=== PATIENT | female | born 1990 | race Caucasian/White ===

== ENCOUNTER 2018-09-01 07:07 | Inpatient (IN) | payer BC, SELFPAY ==
[2016-11-25 04:20] VITALS: BMI 29.9
[2018-09-01] MEDS: Lactated Ringers 1,000 ML 50 ML IV ×3 (07:40→13:51)
[2018-09-01 07:59] LABS: Hematocrit 39.9 % (37-47); Hemoglobin 13.5 g/dl (12.0-15.0); Mean Corp Hgb Conc 33.8 g/gl (32-36); Mean Corpuscular Hgb 30.2 pg (27.0-32.0); Mean Corpuscular Volume 89.3 fL (81-99); Mean Platelet Vol. 10.9 fl (6.2-12.0); Platelet Count 165 K/mm3 (150-450); RBC Distribution Width CV 12.9 % (11.6-14.6); Red Blood Count 4.47 M/mm3 (4.2-5.4); White Blood Count 7.5 K/mm3 (4.4-11.0)
[2018-09-01 08:05] LABS: Scan Indicated on CBC? Y/N NO
[2018-09-01 08:10] VITALS: BMI 30.8
[2018-09-01] MEDS: Oxytocin 30 units/NS 500 ml 30 UNITS/500 ML IV.SOLN IV (08:17)
[2018-09-01] MEDS: Acetaminophen 325 MG Tablet PO (09:04)
[2018-09-01] MEDS: fentaNYL-bupivacaine (epidural) 100 ML BAG EPIDURAL (11:38)
[2018-09-01] MEDS: Oxytocin 30 units/NS 500 ml 30 UNITS/500 ML IV.SOLN 334 UNITS IV (15:08)
--- NOTE | 2018-09-01 15:23 | PCM.OB.VAG ---
Vaginal Delivery Maternal Presentation: Elective Induction Method of Induction: Pitocin, Amniotomy Amniotic Membrane Rupture Type: Artificial Amniotic Fluid Description: Clear Final LALITA: 08/27/18 Final LALITA Source: US <20 weeks Gestational age: 40 Weeks and 5 Days Date of Procedure: 09/01/18 Pre-Operative Diagnosis: labor Post-Operative Diagnosis: same Surgery/ Procedure Performed: Spontaneous Vaginal Delivery Type of Anesthesia: Epidural Description of Procedure: A vigorous female was delivered YANIQUE over an intact perineum. The remainder the infant was delivered with maternal pushing and gentle traction only in less than 15 seconds. The Pitocin infusion was initiated for active management of the third stage. The cord was clamped and cut after 1 minute. The infant was attended to by the waiting nursing staff. The placenta was delivered spontaneously and intact. The cervix and vagina were intact. Sponge and needle counts were correct. A vaginal sweep was completed by me. Presentation: YANIQUE Placental Delivery Description: Spontaneous Placenta Disposition: [facility] Cord Vessel Description: 3 Vessels Cord Entanglement: None Drain: Wilcox to straight drain Estimated Blood Loss: 200 A gender: Female (1 minute): 8 (5 minute): 9 Episiotomy Description: None Laceration: None Medications given after delivery: IV Pitocin Complications: None
--- NOTE | 2018-09-01 15:31 | HP.PCM_ITS ---
History Date of Admission: 09/01/18 Final LALITA: 08/27/18 Final LALITA Source: US <20 weeks Gestational age: 40 Weeks and 5 Days History of this : This is a 27 year-old, 011 at 40-5/7 weeks who presents for induction of labor. Her has been uncomplicated to date. She denies any vaginal bleeding, leaking of fluid, or regular contractions. She has a history of one previous spontaneous vaginal delivery without complication. Allergies Gadolinium-MRI Contrast Medium [CONTRAST] Allergy (Verified 09/01/18 08:13) Rash latex Allergy (Verified 09/01/18 08:13) Rash Home Medications: Home Medications Pnv No.95/Ferrous Fum/Folic AC [ Formula Tablet] 1 each PO DAILY 12/11/15 [place]-3 Fatty Acids/Fish Oil [Fish Oil 1,000 mg Capsule] 1 each PO DAILY 10/03/16 Famotidine [Pepcid AC] 10 mg PO DAILY 11/25/16 Smoking Status: Never smoker Alcohol: None Number of Fetus(es): 1 Heart Tracing: Category 1 upon admission TOCO Analysis: Regular contractions History Past Pregnancies: Past Pregnancies Delivery Date Name GA/Weeks Outcome Route Weight Infant Gender Labor Length Anesthesia Delivery Location Provider FOB Expected Infant Delivery Method: Spontaneous Vaginal Review of Systems Constitutional: Denies: Anorexia, Chills Cardiovascular: Denies: Chest Pain Respiratory: Denies: Cough Gastrointestinal: Denies: Abdominal Pain Genitourinary: Denies: Dysuria Physical Exam General: Alert, Cooperative, No apparent distress Abdomen: Soft, Non-Distended, Tender - appropriately Extremities:: Other - edema 1+ Estimated gestational size: Appropriate for gestational size Presentation: Cephalic Cervix Dilation (cm): 3 Station: -2 Effacement (%): 70 Assessment/Plan This is a 27 year-old 3 para 1 at 40-5/7 weeks for elective induction of labor. Estimated weight is less than 4500 g clinically and pelvis clinically adequate to expect vaginal delivery. May have epidural, Nubain or nitrous oxide as needed for pain control.
[2018-09-01] MEDS: Oxytocin 30 units/NS 500 ml 30 UNITS/500 ML IV.SOLN 167 UNITS IV (15:38)
[2018-09-01 18:00] VITALS: BP 137/67; PULSE 86; RESP 16; TEMP 36.9; O2SAT 97
[2018-09-01] MEDS: Acetaminophen 500 MG Tablet 1000 MG PO (18:02)
--- NOTE | 2018-09-01 19:03 | NURSING ---
epidural cath removed, blue tip intact
[2018-09-01 20:28] VITALS: BP 118/75; PULSE 83; RESP 18; TEMP 36.3; O2SAT 98
[2018-09-01] MEDS: Naproxen 250 MG Tablet PO (20:36)
[2018-09-01 23:18] VITALS: BP 136/81; PULSE 81; RESP 16; TEMP 36.7
[2018-09-02 03:27] VITALS: BP 128/67; PULSE 81; RESP 16; TEMP 36.4
[2018-09-02 07:55] VITALS: BP 127/84; PULSE 86; RESP 16; TEMP 36.8; O2SAT 98
--- NOTE | 2018-09-02 09:36 | PCM.PN.OB ---
Subjective: Some cramping when she is breast-feeding. Average lochia. Tolerating regular diet. No other complaints this morning - Physical Exam General: Alert, Cooperative, No apparent distress Extremities: Edema - Trace Vital Signs Temp Pulse Resp BP Pulse Ox 98.3 F 86 16 127/84 H 98 09/02/18 07:55 09/02/18 07:55 09/02/18 07:55 09/02/18 07:55 09/02/18 07:55 Oxygen Delivery Method Room Air Weight: 81.556 kg Body Mass Index (BMI) 30.8 Intake and Output for Last 24 Hours 08/31/18 09/01/18 09/02/18 23:59 23:59 23:59 Intake Total 2541 / 2541 Output Total 1800 / 1800 400 / 400 Balance 741 / 741 -400 / -400 Laboratory Tests Past 24 Hrs 09/01/18 07:40 Blood Type O POSITIVE Antibody Screen NEGATIVE Medical Necessity - Tobacco Use Smoking Status: Never smoker Assessment/Plan day #1 status post spontaneous vaginal delivery. And is breast-feeding and doing well. Patient requests discharge home later today if okay with pediatrics.
--- NOTE | 2018-09-02 09:39 | DCINST_ITS ---
Discharge Diet: No Restrictions Discharge Activity: Return to Normal Activity, May not drive while taking narcotic pain medications., May Shower May resume sexual activity in: 4-6 weeks Additional Activity Instructions:: Nothing in the vagina for 4-6 weeks. You may return to work/school in 6 weeks. Call your doctor if your incision/area has: Continuous Slow Oozing, Sudden Increased Bleeding, Increased Pain/ Swelling, Increased Redness, Foul Smelling Discharge Additional Instructions: If you experience any of the following, contact your healthcare provider. * Bleeding that soaks a pad every hour for 2 hours * Fever 100.4 or higher * Unrelieved incision or abdominal pain * Swelling, redness, discharge or bleeding from your incision or episiotomy site * Your incision begins to separate * Problems urinating (including inability to urinate or burning while urinating). * Visual changes * Severe headache * Flu-like symptoms * Pain or redness in one of both of your breasts * Pain, warmth, tenderness or swelling in your legs, especially the calf area * Frequent nausea and vomiting * Symptoms of depression or anxiety If you experience any of the following, call 911 or go to the nearest Emergency Room. * Chest pain * Problems breathing * Seizure activity * Partial or complete paralysis of a body part, slurred speech, weakness or drooping of the face, or a sudden inability to walk or hold your balance Allergies/Adverse Reactions: Allergies Gadolinium-MRI Contrast Medium [CONTRAST] Allergy (Verified 09/01/18 08:13) Rash latex Allergy (Verified 09/01/18 08:13) Rash Medications to take at Discharge Pnv No.95/Ferrous Fum/Folic AC [ Formula Tablet] 1 each PO DAILY 12/11/15 [place]-3 Fatty Acids/Fish Oil [Fish Oil 1,000 mg Capsule] 1 each PO DAILY 10/03/16 Ibuprofen [Motrin] 600 mg PO Q6H PRN #60 tab 09/02/18 The following prescriptions were given: Ibuprofen [Motrin] 600 mg PO Q6H PRN #60 tab PRN Reason: Pain Please Follow Up With: Danuta Cheatham MD - [phone] When: Call to make an appointment with your provider's office in 1-2 and 6 weeks or as needed. Primary Care Physician: Sarah Calderón MD [Primary Care Provider] - Test Results: Test results from this visit will be discussed in further detail at your follow- up appointment, if applicable.
[2018-09-02 11:38] VITALS: BP 128/64; PULSE 77; RESP 16; TEMP 36.7; O2SAT 97
[2018-09-02 15:42] VITALS: BP 129/73; PULSE 75; RESP 16; TEMP 36.6; O2SAT 99
== END 2018-09-02 16:45 | disposition home or self-care (01) | DRG 807 ==
PROVIDERS: Admitting Provider Obstetrics & Gynecology; Family Provider Internal Medicine; PCP Internal Medicine; Referring Provider Obstetrics & Gynecology; Visit Provider Obstetrics & Gynecology
DX: O48.0 Post-term pregnancy (principal); Z37.0 Single live birth; Z3A.40 40 weeks gestation of pregnancy
CPT/HCPCS: 59025; 59050; 85027; 86850; 86900; 99218; J7120; G0378

== ENCOUNTER 2019-06-28 21:25 | Emergency (ER) | payer BC, SELFPAY ==
[2019-06-28 21:26] VITALS: BP 167/109; PULSE 90; RESP 16; TEMP 36.4; O2SAT 98; BMI 27.1
--- NOTE | 2019-06-28 23:09 | ED.DCSUM_ITS ---
History of Present Illness Chief Complaint: Other, Pain/Inj Detail of Chief Complaint: Left neck and arm pain Informant: Patient, Family Onset: Weeks - 1 week Context: Gradual Onset Timing: Waxes and wanes Current Severity: Mild Maximum Severity: Moderate Narrative: Patient presents with a one-week history of aching and heaviness in the left la teral neck, left shoulder, and down her left arm. She does not remember a specific injury. She has been carrying her infant around. She states she will intermittently feel tingling in her left hand. She is right-hand dominant. She is been trying Tylenol without improvement. - Past Medical History (1) Liver cancer Status: Resolved Past Medical History - Allergies and Home Meds Allergies/Adverse Reactions: Allergies Gadolinium-MRI Contrast Medium [CONTRAST] Allergy (Verified 06/28/19 21:29) Rash latex Allergy (Verified 06/28/19 21:29) Rash Primary Care Physician: Sarah Calderón MD [Primary Care Provider] - 1 Week if not improving Prior records reviewed: Yes Lives: With Family Smoking Status: Never smoker Review of Systems General: Denies: Chills, Fever Eyes: Denies: Visual changes - bilaterally ENT: Denies: Bilateral ear pain Cardiovascular: Denies: Chest pain Respiratory: Denies: Dyspnea, Cough Gastrointestinal: Denies: Abdominal pain, Nausea, Vomiting Musculoskeletal: Reports: Neck pain, Extremity Pain Skin: Denies: Rash Neurological: Reports: Parasthesia. Denies: Weakness Psych: Denies: Depression, Anxiety Hematologic: Denies: Easy bruising, Easy bleeding Allergy: Denies: Uticaria Physical Exam Vital Signs/Narrative: Vital Signs Temp Pulse Resp BP Pulse Ox 06/28/19 21:26 97.5 F L 90 16 167/109 H 98 Inital Vital Signs reviewed: Yes General: Well nourished, Well developed Head: Normocephalic ENT: Moist mucous membranes, - - Tenderness just superior to the medial left clavicle that causes radiation of pain down the left arm. Neck: Supple Cardiovascular: Regular rate, Regular rhythm Respiratory: No distress Abdomen: Soft, Nontender Rectal: Tenderness - Reproducible tenderness near the medial clavicle on the left. No reproducible tenderness over the posterior shoulder. Back: Nontender Extremities: Nontender Skin: Normal color, No rash Neurological: Alert, Oriented x3, Normal Strength, Normal Sensation Psychological: Normal affect Diagnostic/Tx/Re-eval - Medical Decision Making Patient symptoms are consistent with a pinched nerve. She will be started on anti-inflammatories. She is currently breast-feeding so we will hold off on any muscle relaxers at this time. She was advised to follow with her primary care physician if not improving and she may be able to try a course of steroids to help calm down the inflammation if not improved. ED Disposition - Plan for ED Patient: Disposition: Home or Assisted Living Diagnosis: Cervical radiculopathy Instructions: RADICULOPATHY, Cervical Prescriptions: Naproxen [Naprosyn] 500 mg PO BID PRN PRN #20 tab PRN Reason: Pain Score 1-10/10 Transmission Status: Received by [id number] Referrals: Sarah Calderón MD [Primary Care Provider] - 1 Week if not improving
[2019-06-28] MEDS: Naproxen 500 MG Tablet PO (23:24)
== END 2019-06-28 23:28 | disposition home or self-care (01) ==
PROVIDERS: Emergency Provider Emergency Medicine; Family Provider Internal Medicine; PCP Internal Medicine
DX: M54.12 Radiculopathy, cervical region (principal); Z85.05 Personal history of malignant neoplasm of liver
CPT/HCPCS: 99283

== ENCOUNTER 2022-12-06 18:50 | Inpatient (IN) | payer BC, SELFPAY ==
[2022-12-06] VITALS (33 sets, daily range): BP systolic 116–166; BP diastolic 58–89; PULSE 52–85; TEMP 36.6–36.9; O2SAT 97–100; BMI 29.2
[2022-12-06] MEDS: Lactated Ringers 1,000 ML 50 ML IV (19:00)
[2022-12-06 19:14] LABS: Absolute Lymphocyte Count 1.44 X10^3/uL (0.83-4.51); Absolute Neutrophil Count 5.8 X10^3/uL (2.0-7.7); Basophil# 0.03 X10^3/uL; Basophil% 0.4 % (0-1); Eosinophil# 0.02 X10^3/uL; Eosinophils% 0.3 % (0-5); Hemoglobin 13.7 g/dL (12.0-15.0); Lymphocyte # 1.44 X10^3/ul (0.83-4.51); Lymphocyte % 18.2 % (19-41); Mean Corp Hgb Conc 34.3 g/dL (32-36); Mean Corpuscular Hgb 30.4 pg (27.0-32.0); Mean Corpuscular Volume 88.9 fL (81-99); Mean Platelet Vol. 10.8 fl (6.2-12.0); Monocyte% 7.6 % (0-10); NRBC Flagged by Analyzer 0 % (0-5); Neutrophil % 73.2 % (47-70); Platelet Count 161 K/mm3 (150-450); RBC Distribution Width CV 12.3 % (11.6-14.6); RBC Distribution Width SD 40.3 fl (35.1-43.9); White Blood Count 7.9 K/mm3 (4.4-11.0)
[2022-12-06] MEDS: LACTATED RINGERS 500 ML 999 ML IV (20:10)
[2022-12-06 20:13] LABS: Syphilis Antibodies Non-reactive
--- NOTE | 2022-12-06 20:51 | PCM.HP.OB ---
HPI - General General Date of Admission: 12/06/22 Date of Service: 12/06/22 Chief Complaint: labor HPI Narrative LUL MARTELL, is a 32 F who presents at 40 week gestation with ctx's and is 4 cm dilated. No vb, lof. Good FM. PFSH PFSH Medical History (Updated 12/06/22 @ 20:[address] Marylin Parker, DO) Headache Home Medications vit no.95-ferrous fumarate 28 mg-folic acid 800 mcg tablet ( Multivitamins) 1 ea PO DAILY 12/11/15 [History Last Taken 09/01/18] omega-3 fatty acids-fish oil 340 mg-1,000 mg capsule (Fish Oil) 1 ea PO DAILY 10/03/16 [History Last Taken 09/01/18] ibuprofen 600 mg tablet 600 mg PO Q6H PRN Pain #60 tabs 09/02/18 [Rx Last Taken Unknown] naproxen 500 mg tablet 500 mg PO BID PRN PRN Pain Score 1-10/10 #20 tabs 06/28/19 [Rx Last Taken Unknown] Allergy/AdvReac Type Severity Reaction Status Date / Time Gadolinium-MRI Contrast Allergy Rash Verified 12/06/22 19:45 Medium [CONTRAST] latex Allergy Rash Verified 12/06/22 19:45 Surgical History (Updated 12/06/22 @ 19:34 by Columba Brandt) History of surgery Social History Smoking Status: Never smoker History Elective abortions Hx Para 2 Spontaneous abortions Hx # Term Pregnancies Ectopic pregnancies Hx # Pregnancies Multiple births # of living children Addt'l History: GBS neg 1 hour GTT 104 RI Syphilis NR Hep B neg Hep C neg HIV NR O positive GC/CT neg NST FHR Rate Baby A FHR Category:: Category I Uterine Activity:: Ctx's q 4 min Vital Signs Vital Signs Vital Signs: 12/06/22 18:38 12/06/22 18:38 12/06/22 18:54 Temperature Temperature Source Pulse Rate 75 Blood Pressure 149/70 H 142/89 H BP Systolic 149 142 BP Diastolic 70 89 Pulse Ox 12/06/22 18:54 12/06/22 19:09 12/06/22 19:09 Temperature Temperature Source Pulse Rate 85 73 Blood Pressure 136/84 H BP Systolic 136 BP Diastolic 84 Pulse Ox 12/06/22 19:24 12/06/22 19:24 12/06/22 19:24 Temperature Temperature Source Pulse Rate 71 Blood Pressure 136/73 H BP Systolic 136 BP Diastolic 73 Pulse Ox 97 12/06/22 19:25 12/06/22 19:25 12/06/22 20:46 Temperature 98.5 F Temperature Source Temporal Pulse Rate 72 Blood Pressure BP Systolic BP Diastolic Pulse Ox 12/06/22 20:46 Temperature Temperature Source Pulse Rate Blood Pressure BP Systolic BP Diastolic Pulse Ox 100 Weight Weight: 176 lb Body Mass Index (BMI) 29.2 Labs Labs Labs: Blood Type O POSITIVE Antibody Screen NEGATIVE Hct 40.0 % (37-47) Hgb 13.7 g/dL (12.0-15.0) Obstetrics US Syphilis Total Ab Non-reactive Rhogam given: No Assessment & Plan (1) 40 weeks gestation of : PLAN: Admit for routine intrapartum care. GBS neg. Epidural for pain control. CEFM. Will AROM after epidural. Pelvis adequate and EFW AGA. Anticipate vaginal delivery. (2) Active labor at term: (3) Multiparous: (4) Primary fibrolamellar hepatocellular carcinoma of liver: (5) History of macrosomia in in prior , currently :
[2022-12-06] MEDS: fentaNYL-bupivacaine (epidural) 100 ML BAG EPIDURAL (20:58)
--- NOTE | 2022-12-06 21:14 | PCM.PN.BLA ---
Progress Note At bedside to check on pt s/p epidural. RN at bedside. Pt comfortable. Assessment & Plan Assessment/Plan (1) 40 weeks gestation of : PLAN: S/p epidural. Cvx /-2, head well applied with BBOW. AROM performed for meconium stained fluid. Anticipate vaginal delivery. (2) Active labor at term: (3) Multiparous: (4) Primary fibrolamellar hepatocellular carcinoma of liver: (5) History of macrosomia in infant in prior , currently :
[2022-12-06] MEDS: Ondansetron 4 MG/2 ML Vial IV (21:58)
[2022-12-06] MEDS: Oxytocin 10 UNITS/ML Vial IM (23:17)
[2022-12-06] MEDS: Oxytocin 15 Units/NS 250ml 15 UNITS/250 ML IV.SOLN 83 UNITS IV (23:19)
[2022-12-06] MEDS: Methylergonovine 0.2 MG/ML Ampul IM (23:25)
--- NOTE | 2022-12-06 23:33 | PCM.OPRPT ---
Problems Associated Problem List Diagnoses (1) History of macrosomia in in prior , currently : (2) Primary fibrolamellar hepatocellular carcinoma of liver: (3) Multiparous: (4) Active labor at term: (5) 40 weeks gestation of : (6) Vaginal delivery: Report of Operation Date of Procedure: 12/06/22 Pre-Operative Diagnosis: 40 week gestation, multiparous patient, labor at term Post-Operative Diagnosis: As above Surgery/Procedure Performed:: Repair of left labial laceration Description of Surgical Findings:: VFI in JACOB position. Thick meconium. Apgars 8, 9. Normal appearing placenta with 3 VC. Left labial laceration. Surgeon: Marylin Parker Type of Anesthesia: Epidural Special Medications: None Specimen's removed: Placenta Drains: None Estimated Blood Loss (mL): 200 Fluids Replaced: N/A Description of Procedure: The patient was complete and pushing. The head of the infant delivered in left occiput anterior position. Airway suctioned using bulb syringe. A loose nuchal cord x1 was started to be reduced, but the anterior shoulder began to deliver spontaneously. The anterior shoulder followed by the posterior shoulder and body of the delivered without any force or delay. A viable female infant was placed on maternal abdomen. The cord was clamped and cut immediately. Cord gases and cord blood were obtained. Uterine massage was performed and the placenta was delivered. The placenta was noted to be normal-appearing and intact with a three-vessel cord. Pitocin was started. The uterus was explored x1. A left labial laceration was repaired with several interrupted 3-0 Vicryl stitches placed. A sudden gush was noted. The uterus was explored and cleared of clot, and the lower uterine segment was noted to be boggy. Methergine x1 was given. The uterus was then firm after uterine massage and Methergine. Bleeding hemostatic. Vaginal sweep was performed. Sponge counts were correct. Grafts/Implants Used: None Complications None Admit VTE Documentation VTE Present on Admission: No
[2022-12-07] VITALS (13 sets, daily range): BP systolic 119–138; BP diastolic 57–82; PULSE 52–85; RESP 15–16; TEMP 36.1–37.1; O2SAT 96–98
--- NOTE | 2022-12-07 07:25 | NURSING ---
bedside report given to Dinorah Mortensen RN who is assuming care of pt at this time
--- NOTE | 2022-12-07 09:10 | PCM.PN.OB ---
Subjective Subjective Doing well per patient and nursing staff. Ambulating and taking PO without difficulty. Voiding and passing flatus. Pain controlled. , services for assistance. Denies headache, visual changes, chest pain, shortness of breath, leg pain or increased bleeding. Lochia normal. Objective Data Objective Data Vital Signs: Vital Signs Temp Pulse Resp BP Pulse Ox O2 Del Method 98.1 F 66 16 123/57 H 96 Room Air 12/07/22 07:44 12/07/22 07:44 12/07/22 07:44 12/07/22 07:44 12/07/22 07:44 12/07/22 07:44 Oxygen Delivery Method Room Air Weight: 176 lb Body Mass Index (BMI) 29.2 Intake & Output: Intake and Output for Last 24 Hours 12/05/22 12/06/22 12/07/22 23:59 23:59 23:59 Intake Total 1078.33 / 1078.33 250 / 250 Output Total 200 / 200 500 / 500 Balance 878.33 / 878.33 -250 / -250 Lab / Micro Data Result Diagrams: 12/06/22 19:00 Labs: Laboratory Results - last 24 hr 12/06/22 19:00: WBC 7.9, RBC 4.50, Hgb 13.7, Hct 40.0, MCV 88.9, MCH 30.4, MCHC 34.3, RDW Std Deviation 40.3, RDW Coeff of [place] 12.3, Plt Count 161, MPV 10.8, Immature Gran % (Auto) 0.300, Neut % (Auto) 73.2 H, Lymph % (Auto) 18.2 L, [place] % (Auto) 7.6, Eos % (Auto) 0.3, Baso % (Auto) 0.4, Absolute Neuts (auto) 5.8, Absolute Lymphs (auto) 1.44, Nucleated RBC % 0 12/06/22 19:00: Blood Type O POSITIVE, Antibody Screen NEGATIVE 12/06/22 19:00: Syphilis Total Ab Non-reactive ROS Constitutional Constitutional: Reports systems reviewed and no addt'l complaints, except as documented; Denies headache(s) Eyes Eyes: Denies acute decrease in peripheral vision, blurry vision or change in vision ENT HEENT: Reports systems reviewed and no addt'l complaints, except as documented Cardiovascular Cardiovascular: Denies chest pain or dizziness Respiratory/Chest Respiratory/Chest: Denies cough, dyspnea, dyspnea on exertion, shortness of breath at rest or shortness of breath with exertion Gastrointestinal Gastrointestinal: Denies abdominal pain, diarrhea, nausea or vomiting Genitourinary Genitourinary: Denies abdominal discomfort Musculoskeletal Musculoskeletal: Denies limited range of motion Integumentary Integumentary: Reports systems reviewed and no addt'l complaints, except as documented Neurologic Neurologic: Reports systems reviewed and no addt'l complaints, except as documented Psychiatric Psychiatric: Reports systems reviewed and no addt'l complaints, except as documented Endocrine Endocrinology: Reports systems reviewed and no addt'l complaints, except as documented Hematologic/Lymphatic Hematologic/Lymphatic: Reports systems reviewed and no addt'l complaints, except as documented Allergic/Immunologic Allergic/Immunologic: Reports systems reviewed and no addt'l complaints, except as documented Physical Exam Const alert and oriented x3 General Appearance: cooperative Orientation / Consciousness: awake, oriented to person, oriented to place and oriented to time Exam Limitations: no limitations HEENT normocephalic Head and Scalp: normal to inspection, normocephalic and atraumatic Face and Sinus: normal facial exam Eyes General Eye: normal appearance of both eyes Neck full ROM Chest Chest: symmetrical chest wall rise Resp normal respiratory effort and normal air movement Auscultation: clear to auscultation bilaterally Cardio regular rate, regular rhythm, S1 normal heart sound, S2 normal heart sound, no murmurs, no rub, no gallops and no clicks GI normal to inspection, nondistended, normoactive bowel sounds and non-tender appearance of the vagina normal Bladder / Kidney Exam: no CVA tenderness Back/Spine normal ROM Extremity normal to inspection and full ROM Skin no rashes or lesions noted Neuro oriented x3, CN's II-XII intact bilaterally and moves all extremities Sensorium / Orientation: awake, alert and oriented to person Motor Exam: clonus absent Deep Tendon Reflexes: Rt Patellar (L4): 2+ and Lt Patellar (L4): 2+ Assessment & Plan (1) Vaginal delivery: (2) Lactating mother: PLAN: Plan 1) Routine PP care PPD #1 2) Vitals stable 3) Hgb stable 4) Pain controlled 5) without complications 6) Planning D/C home tomorrow
[2022-12-08 02:55] VITALS: BP 119/77; PULSE 64; RESP 16; TEMP 36.1; O2SAT 97
[2022-12-08 08:00] VITALS: BP 123/72; PULSE 64; RESP 16; TEMP 36.2; O2SAT 97
--- NOTE | 2022-12-08 08:32 | PCM.PN.OB ---
Subjective Subjective Patient seen at bedside. Feeling good. Denies any pain. Ambulating and voiding without difficulty. Lochia decreasing. Objective Data Objective Data Vital Signs: Vital Signs Temp Pulse Resp BP Pulse Ox O2 Del Method 97 F L 64 16 119/77 97 Room Air 12/08/22 02:55 12/08/22 02:55 12/08/22 02:55 12/08/22 02:55 12/08/22 02:55 12/08/22 02:55 Oxygen Delivery Method Room Air Weight: 176 lb Body Mass Index (BMI) 29.2 Intake & Output: Intake and Output for Last 24 Hours 12/06/22 12/07/22 12/08/22 23:59 23:59 23:59 Intake Total 1078.33 / 1078.33 250 / 250 Output Total 200 / 200 500 / 500 Balance 878.33 / 878.33 -250 / -250 Lab / Micro Data Result Diagrams: 12/06/22 19:00 ROS Eyes Eyes: Denies blurry vision, change in vision or spots in vision ENT HEENT: Denies dizziness or headache(s) Cardiovascular Cardiovascular: Denies abdominal pain, chest pain or dyspnea Respiratory/Chest Respiratory/Chest: Denies cough, dyspnea, shortness of breath at rest or shortness of breath with exertion Gastrointestinal Gastrointestinal: Denies abdominal pain, diarrhea or vomiting Genitourinary Genitourinary: Denies change in urinary stream, difficulty urinating or dysuria Musculoskeletal Musculoskeletal: Reports none Integumentary Integumentary: Denies rash Neurologic Neurologic: Denies dizziness, headache(s), memory loss or weakness Physical Exam Const alert and no apparent distress General Appearance: cooperative and comfortable Exam Limitations: no limitations HEENT normocephalic Eyes General Eye: normal appearance of both eyes Neck full ROM General: normal visual inspection Chest Chest: symmetrical chest wall rise Resp normal respiratory effort and normal air movement Effort and Inspection: symmetric chest movement Auscultation: clear to auscultation bilaterally Cardio regular rate and regular rhythm GI normal to inspection, nondistended, normoactive bowel sounds Back/Spine normal ROM Extremity full ROM and no calf tenderness General Extremity: normal exam except as noted Skin no rashes or lesions noted Neuro CN's II-XII intact bilaterally Psych mental status grossly normal Assessment & Plan (1) Lactating mother: (2) Vaginal delivery: PLAN: Plan PPD1 Routine care support D/C home with follow up in office
--- NOTE | 2022-12-08 08:33 | DCINST_ITS ---
Discharge Instructions Diet Discharge Diet: No restrictions Activity Discharge Activity: Return to Normal Activity, May Shower and May Take a Tub Bath May resume sexual activity in: 4-6 weeks Weight Bearing Status: Weight bearing as tolerated Dressing / Incision Call your doctor if you observe: Inability to urinate, Using more than 1 pad per hour, Shortness of breath, Dizziness, Swelling in the ankles, Chest pain, Calf discomfort and Uncontrolled pain Follow Up Care When: Within 10 days Test Results: Test results from this visit will be discussed in further detail at your follow- up appointment, if applicable. Discharge Plan Admission Admit Date/Time: 12/06/22 18:50 Primary Reason for Your Visit: labor and delivery Attending Provider: Marylin Parker Primary Care Provider: Sarah Calderón Discharge Orders/Prescriptions Prescriptions: Continued PNV cmb#95-ferrous fumarate-FA [ Multivitamins] 1 EACH tablet 1 ea PO DAILY Discontinued Fish Oil 1 EACH capsule 1 ea PO DAILY ibuprofen 600 MG tablet 600 mg PO Q6H PRN (Reason: Pain) Qty: 60 1RF naproxen 500 MG tablet 500 mg PO BID PRN PRN (Reason: Pain Score 1-10/10) Qty: 20 0RF Referrals / Follow Up: Sarah Calderón MD [Primary Care Provider] - Disposition Disposition (needs filled in before D/C Order can be placed): Home, Self Care
== END 2022-12-08 09:25 | disposition home or self-care (01) | DRG 806 ==
LOC: WPOUT 19:02 → WP 19:02
PROVIDERS: Admitting Provider Obstetrics & Gynecology; PCP Internal Medicine; Visit Provider Obstetrics & Gynecology
DX: O70.0 First degree perineal laceration during delivery (principal); Z37.0 Single live birth; C22.0 Liver cell carcinoma; O69.81X0 Labor and delivery complicated by cord around neck, without compression, not applicable or unspecified; O77.0 Labor and delivery complicated by meconium in amniotic fluid; Z3A.40 40 weeks gestation of pregnancy; Z64.1 Problems related to multiparity; O9A.12 Malignant neoplasm complicating childbirth
CPT/HCPCS: 59025; 59050; 85025; 86780; 86850; 86900; 86901; 99221; J7120; G0378; J2405

== ENCOUNTER 2023-03-04 20:22 | Emergency (ER) | payer BC, SELFPAY ==
[2023-03-04 20:23] VITALS: BP 162/97; PULSE 93; RESP 16; TEMP 36.6; O2SAT 100; BMI 26.4
[2023-03-04 20:26] VITALS: BMI 26.4
--- NOTE | 2023-03-04 20:48 | CT_ITS ---
EXAMINATION : Head CT w/out contrast HISTORY : headache, h/o cancer COMPARISON : None. TECHNIQUE : Multiple contiguous axial images were obtained from the skull base to the vertex without intravenous contrast. A radiation dose optimization technique was used for this scan. FINDINGS : The ventricles and sulci are normal in size. There is no evidence for acute intracranial hemorrhage, mass effect, or midline shift. There is no extra-axial fluid collection. There is normal truong-white differentiation, without CT evidence of acute ischemia or infarct. The skull base and calvarium are unremarkable. The orbits are unremarkable. The paranasal sinuses are clear. The mastoid air cells are well-aerated. The soft tissues are unremarkable. CT/Brain/Head without Contrast IMPRESSION: No acute intracranial abnormality. Electronically Signed: Ezequiel Schrdaer MD at 21:21 EDT ,
[2023-03-04 20:50] LABS: Bedside Glucose 100 mg/dL (74-106)
--- NOTE | 2023-03-04 21:02 | EX.ED.DYSGE1 ---
HPI <BRAYDON Mcdonald - Last Filed: 03/04/23 21:33> History of Present Illness Chief Complaint: Neuro S/Sx Narrative Narrative: 32-year-old female presents with 2 weeks of slight tremor in both hands and heaviness in both arms. She also noticed her left peripheral vision was intermittently blurring in her left eye seems to be drifting inward. She has a history of migraines but has never had an aura and states that these visual disturbance happened once with a headache but several times without. She has a history of liver cancer with resection 9 years ago. She gets yearly monitoring MRIs the one done a week ago showed a new lung mass. With these new neurological symptoms her liver surgeon recommended she come to the ED for a CT scan of the brain. PFSH <BRAYDON Mcdonald - Last Filed: 03/04/23 21:33> [facility] Medical History (Updated 03/05/23 @ 00:[address] Joey Calderon, DO) Headache History of macrosomia in infant in prior , currently Lactating mother Primary fibrolamellar hepatocellular carcinoma of liver Vaginal delivery Home Medications vit no.95-ferrous fumarate 28 mg-folic acid 800 mcg tablet ( Multivitamins) 1 ea PO DAILY 12/11/15 [History Last Taken 09/01/18] Allergy/AdvReac Type Severity Reaction Status Date / Time Gadolinium-MRI Contrast Allergy Rash Verified 03/04/23 20:27 Medium [CONTRAST] latex Allergy Rash Verified 03/04/23 20:27 Surgical History History of surgery Social History Smoking Status: Never smoker ROS <BRAYDON Mcdonald - Last Filed: 03/04/23 21:33> ROS ED ROS Narrative Constitutional: Negative for fever, chills, malaise. Eyes: Positive for visual change. CVS: Negative for chest pain, syncope. Respiratory: Negative for shortness of breath, cough. GI: Negative for abdominal pain, nausea, vomiting. Neuro: Negative for motor/sensory dysfunction. EXAM <BRAYDON Mcdonald - Last Filed: 03/04/23 21:33> Physical Exam Narrative Exam Narrative: CONST: Patient sitting in no acute distress. EYES: Normal inspection. PERRLA, EOMI, no nystagmus. ENT: Normal inspection, moist mucous membranes. NECK: Normal inspection. RESP: No respiratory distress, CTAB. CVS: Regular rate and rhythm, no murmur, no gallop. SKIN: Color normal, no rash, warm, dry, intact. EXTREMITIES: Normal appearance, no pedal edema. NEURO: Oriented x4. Face symmetric, cranial nerves II through XII intact, 5/5 upper and lower extremity strength, normal sensation, normal finger-nose and [id number]. No significant tremor. No asterixis. PSYCH: Normal affect. Const Vital Signs: 03/04/23 20:23 Temperature 98 F Temperature Source Temporal Pulse Rate 93 Respiratory Rate 16 Blood Pressure 162/97 H Blood Pressure Mean 118 Pulse Ox 100 <Dr. Joey Calderon DO - Last Filed: 03/05/23 00:01> Physical Exam Const Vital Signs: 03/04/23 20:23 Temperature 98 F Temperature Source Temporal Pulse Rate 93 Respiratory Rate 16 Blood Pressure 162/97 H Blood Pressure Mean 118 Pulse Ox 100 MDM <BRAYDON Mcdonald - Last Filed: 03/04/23 21:33> [facility] Narrative Medical decision making narrative: History gathered from: Patient and Patient has recently noticed a fine tremor and some left sided visual changes intermittently. She appears well and nontoxic. BP is 162/97 with otherwise normal vital signs. Her pupils are equal round and reactive and extraocular motion is intact with no abnormalities. No visual field deficits. She is neurologically intact with NIH of 0. With her history of liver carcinoma and recent lung nodule/mass found on outpatient imaging I elected to do a screening CT scan of the brain. CT shows no acute abnormalities. I discussed she should follow-up with her primary care doctor for these ongoing symptoms and she was discharged in stable condition. Differential: Intracranial mass, ocular etiology, migraine with aura Lab Data Labs: Laboratory Results - last 24 hr 03/04/23 20:31 POC Glucose 100 Radiography Diagnostic Testing: Clinical Impression(s) from Imaging Studies Brain CT 03/04/23 20:48 IMPRESSION: No acute intracranial abnormality. Electronically Signed: Ezequiel Schrader MD at 21:21 EDT , <Dr. Joey Calderon, DO - Last Filed: 03/05/23 00:01> [facility] Lab Data Labs: Laboratory Results - last 24 hr 03/04/23 20:31 POC Glucose 100 Radiography Diagnostic Testing: Clinical Impression(s) from Imaging Studies Brain CT 03/04/23 20:48 IMPRESSION: No acute intracranial abnormality. Electronically Signed: Ezequiel Schrader MD at 21:21 EDT , Treatment and Re-Evaluation :: I have personally performed a face to face assessment of the patient and have reviewed the JENNIFER Note. I performed a substantive portion of the visit including all aspects of the following. My troncoso findings include: History: Patient presents with tremor and left-sided visual changes that have been intermittent over the past few days. Patient states she has a history of liver cancer. Patient states she was recently diagnosed with a mass on her lung. Patient states she is scheduled to have this evaluated further. Patient states she called her physician who referred to the emergency department. Patient denies any nausea or vomiting. Patient denies any shortness of breath. Patient admits to a mild headache. Exam: Vital signs are stable. Patient is afebrile. Patient is in no acute distress. Cranial nerves II through XII are intact. Strength is 5/5 bilaterally upper and lower extremities. There are no sensory deficits noted. There is a mild tremor noted in the fingers bilaterally. There is no asterixis noted. Heart was regular rate and rhythm. Lungs are clear and equal bilaterally. Abdomen is soft and nontender. Medical Decision Making: Differential diagnosis includes intracranial mass, bleeding, and stroke. CT scan of the brain will be obtained to assess for intracranial bleeding, mass, and stroke. CT scan of the brain was obtained. There is no acute intracranial abnormality. This was interpreted by the radiologist and was also independently reviewed by myself. BGT was obtained and was 100. Patient was advised of her findings. Patient was instructed to follow-up with her primary care physician as scheduled. Patient and spouse understood and were agreeable with the plan. All questions were answered. Discharge Plan Triage Chief Complaint: Neuro S/Sx ED Midlevel Provider: Kaci Eugene ED Provider: Joey Calderon Dx/Rx/DC Orders Clinical Impression: Visual disturbance, Tremor Instructions: Understanding Vision Problems Prescriptions: No Action PNV cmb#95-ferrous fumarate-FA [ Multivitamins] 1 EACH tablet 1 ea PO DAILY Primary Care Provider: Sarah Calderón Referrals: Sarah Calderón MD [Primary Care Provider] - Activity Restrictions/Additional Instructions: The CT scan of your brain showed no abnormalities. However with these ongoing new symptoms I recommend you follow-up with your primary care doctor next week. Disposition Disposition: Home, Self Care Discharge Date/Time: 03/04/23 22:05
[2023-03-04 22:04] VITALS: BP 121/78; RESP 18; O2SAT 98
== END 2023-03-04 22:05 | disposition home or self-care (01) ==
PROVIDERS: Emergency Provider Emergency Medicine; PCP Internal Medicine; Visit Provider Emergency Medicine
DX: R25.1 Tremor, unspecified (principal); H53.9 Unspecified visual disturbance; Z85.05 Personal history of malignant neoplasm of liver
CPT/HCPCS: 70450; 82962; 99284; A4216

== ENCOUNTER 2023-06-23 03:53 | Emergency (ER) | payer BC, SELFPAY ==
[2023-06-23 03:56] VITALS: BP 139/81; PULSE 84; RESP 16; TEMP 36.4; O2SAT 98; BMI 23.1
--- NOTE | 2023-06-23 04:13 | EDS_ITS ---
HPI History of Present Illness Chief Complaint: Eye Problem Informant: patient Onset/Context/Timing Location: Bilateral Eyes Onset: Today Narrative Narrative: Patient presents secondary to gritty eyes. She states she woke from sleep this morning with some white drainage and thought she might have had a stye along her left eye. She noted some slight eyelid swelling and some slight injection. Patient does have a history of fibrolamellar hepatocellular carcinoma of the liver. She is currently on Xeloda and Opdivo which, per Dr. Rasmussen, can cause an autoimmune reaction with potential anterior uveitis. He called me to advise he was sending the patient to have someone look at her. Patient does admit to recent URI symptoms. She describes some slight irritation of her eyes but no significant eye pain. She does not wear glasses or contacts. [facility] Medical History Headache History of macrosomia in in prior , currently Lactating mother Primary fibrolamellar hepatocellular carcinoma of liver Vaginal delivery Home Medications vit no.95-ferrous fumarate 28 mg-folic acid 800 mcg tablet ( Multivitamins) 1 ea PO DAILY 12/11/15 [History Last Taken 09/01/18] Allergy/AdvReac Type Severity Reaction Status Date / Time Gadolinium-MRI Contrast Allergy Rash Verified 06/23/23 03:53 Medium [CONTRAST] latex Allergy Rash Verified 06/23/23 03:53 Surgical History History of surgery Social History Smoking Status: Never smoker ROS ROS ED Constitutional Constitutional ED: Denies fever(s) Eyes Eyes: Reports other Details: Eye injection and irritation. Slight eye discharge. ENT ENT ED: Reports other Details: Nasal congestion ; Denies sore throat Cardiovascular Cardiovascular: Denies chest pain Respiratory/Chest Respiratory/Chest: Denies cough or dyspnea Gastrointestinal Gastrointestinal: Denies abdominal pain or vomiting Musculoskeletal Musculoskeletal: Denies back pain Neurologic Neurologic: Denies headache(s) Psychiatric Psychiatric: Denies anxiety or depression EXAM Physical Exam Const Vital Signs: 06/23/23 03:56 Temperature 97.5 F L Temperature Source Temporal Pulse Rate 84 Respiratory Rate 16 Blood Pressure 139/81 H Blood Pressure Mean 100 Pulse Ox 98 Positive well nourished and well developed General Appearance ED: well developed Eyes Eyes Narrative: Pupils equal round and reactive. Minimal injection at this time. No discharge noted. Extraocular movements fully intact. Neck no lymphadenopathy Resp normal respiratory effort and clear to auscultation bilaterally Cardio regular rate and regular rhythm Extremity normal to inspection Neuro oriented x3 and moves all extremities Skin Lesions: no lesions Rashes: no rashes MDM MDM MDM Narrative Medical decision making narrative: Patient has had recent viral symptoms and certainly could have conjunctivitis. She is on medication which makes her more prone to autoimmune reactions such as anterior uveitis. She is not having significant eye pain. Visual acuity is obtained. Left eye is 20/20, right eye 20/25, bilateral 20/15. Patient be treated with gentamicin ophthalmic drops. I do feel her symptoms are most consistent with conjunctivitis, however because she is on chemotherapy agents that can cause autoimmune reaction such as uveitis I will speak with ophthalmology this morning to help ensure close follow-up. Patient will call the office when they open in the morning for follow-up. Discharge Plan Triage Chief Complaint: Eye Problem ED Provider: Fabiola Rasheed Dx/Rx/DC Orders Clinical Impression: Conjunctivitis Instructions: ED Conjunctivitis, Nonspecific Prescriptions: No Action PNV cmb#95-ferrous fumarate-FA [ Multivitamins] 1 EACH tablet 1 ea PO DAILY Primary Care Provider: Sarah Calderón Referrals: Sarah Calderón MD [Primary Care Provider] - Tamiko Nelson MD [Med Staff - Active Staff] - 1 Day Activity Restrictions/Additional Instructions: As discussed, please call Dr. Nelson's office today for close follow-up. I will speak with her this morning to let her know you will be calling for an appointment. Disposition Disposition: Home, Self Care
[2023-06-23] MEDS: Gentamicin Sulfate 1 OPTH.BTL 2 DRP EACH EYE (04:36)
== END 2023-06-23 04:59 | disposition home or self-care (01) ==
PROVIDERS: Emergency Provider Emergency Medicine; PCP Internal Medicine; Visit Provider Emergency Medicine
DX: H10.9 Unspecified conjunctivitis (principal); Z85.05 Personal history of malignant neoplasm of liver; Z92.21 Personal history of antineoplastic chemotherapy
CPT/HCPCS: 99283

== ENCOUNTER 2023-10-07 22:05 | Emergency (ER) | payer BC, SELFPAY ==
[2023-10-07 22:07] VITALS: BP 145/90; PULSE 118; RESP 18; TEMP 37.3; O2SAT 94; BMI 22.0
[2023-10-07 22:32] VITALS: O2SAT 94
--- NOTE | 2023-10-07 22:52 | ED.VIS.DYS ---
HPI History of Present Illness Chief Complaint: Shortness of Breath Detail of Chief Complaint: Shortness of breath Informant: patient Narrative Narrative: Patient presents with shortness of breath that started few weeks ago. She developed a little bit of a cough. Patient had a visit with her oncologist today and had a chest x-ray that showed some right pleural fluid and was told might need to be drained if she got extremely winded. Patient complains of exertional dyspnea. She denies fevers. She denies dysuria urgency or frequency. No recent travel or surgery. [facility] Medical History (Updated 10/08/23 @ 03:[address] Adriel Stanford DO) Headache History of macrosomia in in prior , currently Lactating mother Migraines Mitral valve prolapse Primary fibrolamellar hepatocellular carcinoma of liver Vaginal delivery Home Medications cholecalciferol (vitamin D3) 125 mcg (5,000 unit) tablet (Vitamin D3) 5,000 unit PO DAILY 10/07/23 [History Last Taken Unknown] quercetin 500 mg capsule 1,000 mg PO DAILY 10/07/23 [History Last Taken Unknown] hydrocodone-acetaminophen 5-325mg 5mg-325mg 1 tab PO Q4H PRN PRN Pain 2 days #10 TABLETS 10/08/23 [Rx Last Taken Unknown] Allergy/AdvReac Type Severity Reaction Status Date / Time Gadolinium-MRI Contrast Allergy Rash Verified 10/07/23 22:11 Medium [CONTRAST] latex Allergy Rash Verified 10/07/23 22:11 Surgical History (Updated 10/07/23 @ 22:30 by Lisa Fraga) History of appendectomy History of surgery History of surgery of liver Social History Smoking Status: Never smoker ROS ROS ED Review of Systems ROS Unobtainable: other Constitutional Constitutional ED: Reports lethargy; Denies chills, fever(s), sweats or weight loss Eyes Eyes: Denies blurry vision, change in vision or diplopia ENT ENT ED: Denies rhinorrhea or sore throat Cardiovascular Cardiovascular: Reports chest pain; Denies orthopnea or racing heartbeat Respiratory/Chest Respiratory/Chest: Reports cough, dyspnea and dyspnea on exertion; Denies orthopnea or sputum Gastrointestinal Gastrointestinal: Denies abdominal pain, diarrhea, nausea or vomiting Genitourinary Genitourinary ED: Denies dysuria, hematuria or urinary frequency Musculoskeletal Musculoskeletal: Denies arthralgias, back pain, myalgias or neck pain Integumentary Denies abscess, Abrasions or rash Neurologic Neurologic: Denies headache(s) or weakness Psychiatric Psychiatric: Denies anxiety, depression or suicidal thoughts Endocrine Endocrinology: Denies polydipsia, polyphagia or polyuria Hematologic/Lymphatic Hematologic/Lymphatic: Denies easy bleeding, easy bruising or lymphadenopathy Allergic/Immunologic Allergic/Immunologic ED: Denies mouth swelling, tongue swelling or urticaria EXAM Physical Exam Const Vital Signs: 10/07/23 22:07 10/07/23 22:32 10/07/23 23:07 Temperature 99.1 F Temperature Source Oral Pulse Rate 118 H 92 Respiratory Rate 18 24 H Respiratory Effort Short of Breath Respiratory Depth Normal Blood Pressure 145/90 H 130/79 H Blood Pressure Mean 108 96 Pulse Ox 94 93 Oxygen Delivery Method Room Air Room Air Room Air 10/08/23 00:07 10/08/23 01:00 10/08/23 02:00 Temperature Temperature Source Pulse Rate 96 89 83 Respiratory Rate 20 H 24 H 26 H Respiratory Effort Respiratory Depth Blood Pressure 124/67 H 125/75 H 122/71 H Blood Pressure Mean 86 91 88 Pulse Ox 94 98 91 Oxygen Delivery Method Room Air Room Air 10/08/23 03:36 10/08/23 03:36 Temperature 98.1 F 98.1 F Temperature Source Oral Pulse Rate 103 H 103 H Respiratory Rate 29 H 29 H Respiratory Effort Respiratory Depth Blood Pressure 129/85 H 129/85 H Blood Pressure Mean 99 99 Pulse Ox 92 92 Oxygen Delivery Method Room Air Positive well nourished and well developed General Appearance ED: well developed and NAD HEENT Reports TM's clear and moist mucous membranes normocephalic and atraumatic; Negative for trauma or tenderness Tympanic Membrane ED: Yes TM's clear Eyes PERRL and EOMs intact bilaterally General Eye ED: Negative for pale conjunctiva or scleral icterus Neck no lymphadenopathy, supple and no JVD General: Negative for tenderness Chest Wall inspection of chest normal and palpation of chest normal Chest: Negative for tenderness Resp normal respiratory effort and clear to auscultation bilaterally Resp Narrative: Diminished breath sounds on the right with some rales. Effort and Inspection: Negative for respiratory distress or pain with movement Auscultation: Negative for rhonchi, wheezes or diminished lung sounds Cardio regular rhythm, S1 normal heart sound, S2 normal heart sound and no murmurs; Negative for regular rate Rate: tachycardic Peripheral Pulses: pulses 2+ throughout GI normal to inspection, nondistended, normoactive bowel sounds, soft to palpation, non-tender, non-distended and no masses Back/Spine no CVA tenderness and no thoracic nor lumbar tenderness Extremity normal to inspection General Extremety ED: Negative for edema General Extremity: Negative for edema Neuro oriented x3, CN's II-XII intact bilaterally, no sensory deficits noted and gait normal Sensorium / Orientation: awake, alert, oriented to person, oriented to place and oriented to time Motor Exam: strength 5/5 throughout and strength abnormal Psych mental status grossly normal Skin no rashes or lesions noted and no wounds MDM MDM MDM Narrative Medical decision making narrative: Patient presents with dyspnea related to lung masses and pleural effusion. IV line established. She had blood work earlier today that she was able to show me on her MyChart. I did obtain a urinalysis that was normal. Initially did a chest x-ray that showed large pleural effusion. Given the fact she came in tachycardic and history of cancer did obtain a D-dimer that was elevated and then obtain a CTA of her chest to rule out PE. CT was negative for PE. She had multiple lung masses in the right lung with large pleural effusion. Clinically she is stable and she is not hypoxic or in any distress. At this time I do not have radiology available to perform thoracentesis and there is no one here this weekend that can perform the thoracentesis. Patient states that she can have 1 scheduled for early this week at [facility]. She is clinically stable and would like to go home and follow-up as an outpatient. She is advised to return if increasing shortness of breath or condition should worsen anyway. Patient advised to visit to tertiary care center otherwise to have her lung drained if she cannot wait till her scheduled appointment next week. Lab Data Attestation: I reviewed the patient's lab results. Labs: Laboratory Results - last 24 hr 10/07/23 10/07/23 23:15 23:55 D-Dimer Quant (PE/DVT) 1.48 H* Urine Color Yellow Urine Clarity Clear Urine pH 5.0 Ur Specific [place] 1.025 Urine Protein 30 H Urine Glucose (UA) Normal Urine Ketones 50 H Urine Occult Blood 10 H Urine Nitrite Negative Urine Bilirubin Negative Urine Urobilinogen 4 H Ur Leukocyte Esterase 100 H Urine RBC 0-5 SEEN Urine WBC 0-5 SEEN Ur Squamous Epith Cells 5-10 SEEN Urine Bacteria 2+ Urine Mucus 0 SEEN Radiography Diagnostic Testing: Clinical Impression(s) from Imaging Studies Chest X-Ray 10/07/23 23:19 IMPRESSION: Large right pleural effusion Electronically Signed: Andrez Garcia MD at 0:17 EDT , Chest CTA 10/08/23 00:33 IMPRESSION: * No pulmonary embolism. * Extensive bulky pleural masses throughout the right hemithorax accompanied by large right pleural effusion. As far as I can tell, the masses are not entirely pleural, and there is no evidence of metastatic disease elsewhere within the chest, abdomen or pelvis. 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 * No acute findings in the abdomen or pelvis. * Postprocedural changes in the left hepatic lobe. Electronically Signed: Andrez Garcia MD at 2:45 EDT , Abdomen/Pelvis CT 10/08/23 00:36 IMPRESSION: * No pulmonary embolism. * Extensive bulky pleural masses throughout the right hemithorax accompanied by large right pleural effusion. As far as I can tell, the masses are not entirely pleural, and there is no evidence of metastatic disease elsewhere within the chest, abdomen or pelvis. 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 * No acute findings in the abdomen or pelvis. * Postprocedural changes in the left hepatic lobe. Electronically Signed: Andrez Garcia MD at 2:45 EDT , 1 view chest x-ray obtained interpreted by myself as large pleural effusion on the right. Radiology in agreement. Discharge Plan Triage Chief Complaint: Shortness of Breath ED Provider: Adriel Stanford Dx/Rx/DC Orders Clinical Impression: Acute dyspnea, Pleural effusion Instructions: ED Dyspnea, ED Pleural Effusion Prescriptions: New hydrocodone-acetaminophen [hydrocodone-acetaminophen] 5-325 mg tablet 1 tab PO Q4H PRN PRN (Reason: Pain) 2 Days Qty: 10 0RF No Action cholecalciferol (vitamin D3) [Vitamin D3] 125 mcg (5,000 unit) tablet 5,000 unit PO DAILY quercetin 500 mg capsule 1,000 mg PO DAILY Primary Care Provider: Sarah Calderón Referrals: Sarah Calderón MD [Primary Care Provider] - Activity Restrictions/Additional Instructions: Keep your appointment at [facility] for thoracentesis to relieve fluid from your right lung. If unable to wait her symptoms worsen visit tertiary care center for emergent thoracentesis. Disposition Disposition: Home, Self Care Discharge Date/Time: 10/08/23 03:39
[2023-10-07 23:07] VITALS: BP 130/79; PULSE 92; RESP 24; O2SAT 93
[2023-10-07 23:19] LABS: Mucous, Urine 0 SEEN /hpf (<or=2+)
--- NOTE | 2023-10-07 23:19 | RAD_ITS ---
INDICATION: dyspnea EXAMINATION/TECHNIQUE: X-RAY - XR Chest 2 Views COMPARISON: No relevant prior comparison study available FINDINGS: LINES/DEVICES: None. LUNGS: Large right pleural effusion filling two thirds of the hemithorax with accompanying atelectasis. Left lung clear. No pneumothorax. MEDIASTINUM AND CARDIOVASCULAR STRUCTURES: Cardiac silhouette not enlarged. Central airways and mediastinal contour are unremarkable. BONES AND SOFT TISSUES: No acute osseous abnormalities. RAD/Chest PA and Lateral IMPRESSION: Large right pleural effusion Electronically Signed: Andrez Garcia MD at 0:17 EDT ,
[2023-10-07 23:29] LABS: Color, Urine Yellow (Yellow); Glucose, Dipstick Normal (Normal); Ketone-Dipstick 50 mg/dl (Negative); Leukocyte Esterase-Dipstick 100 /ul (Negative); Nitrite-Dipstick Negative (Negative); Occult Blood-Urine 10 /ul (Negative); Protein-Dipstick 30 mg/dl (Negative); Specific Gravity, Urine 1.025 (1.002-1.030); Urine Bilirubin Dipstick Negative (Negative); Urine Clarity Clear (Clear); Urine Urobilinogen 4 mg/dl (Normal)
[2023-10-07 23:40] LABS: Red Blood Cells-Urine 0-5 SEEN /hpf (0-5); Squamous Epithelial Cells - UA 5-10 SEEN /hpf (5-10); White Blood Cells 0-5 SEEN /hpf (0-5)
[2023-10-07 23:41] LABS: Bacteria 2+ /hpf (None Seen)
[2023-10-08 00:07] VITALS: BP 124/67; PULSE 96; RESP 20; O2SAT 94
[2023-10-08] MEDS: Ondansetron 4 MG/2 ML Vial IV (00:09)
[2023-10-08] MEDS: Morphine 4 MG/ML Syringe IV (00:10)
[2023-10-08 00:22] LABS: D-Dimer Quantitative (DVT/PE) 1.48 FEU/ug/m (0.27-0.49)
--- NOTE | 2023-10-08 00:36 | CT_ITS ---
STUDY: CTA CHEST AND CT ABDOMEN / PELVIS WITH CONTRAST REASON FOR EXAM: Female, 33 years old. right abdominal pain RADIATION DOSAGE (If Supplied By Facility): CTDIvol = ( 8.47 ) mGy, DLP = ( 646.96 ) mGycm TECHNIQUE: The examination was performed with the intravenous administration of IV 75mL [id number]. Postcontrast imaging of the chest was performed during the pulmonary angiographic phase, while postcontrast imaging of the abdomen and pelvis was performed during the portal venous phase. Post-processing of the angiographic images was performed, with multiplanar reformation and 3D reconstruction. Individualized dose optimization techniques were used for this CT. COMPARISON: No relevant prior comparison study available FINDINGS: CTA CHEST AORTA: Normal thoracic aorta and visualized great vessels. There is no demonstrated aortic dissection. PULMONARY ARTERIES: Normal enhancement of the main pulmonary artery and right and left pulmonary arteries. Normal enhancement of the bilateral peripheral pulmonary arteries. There is no demonstrated pulmonary embolism. MEDIASTINUM: Normal heart and pericardium. No definite mediastinal lymphadenopathy. There are bulky pleural masses along the mediastinal pleura which is deviated leftward along with the mediastinum. LUNGS/PLEURA: Large right pleural effusion nearly completely fills the right hemithorax with collapse of the majority of the right lung with only a small portion of the right upper lobe remaining aerated. Multiple bulky hypoenhancing pleural masses are present throughout the right hemithorax. No definite intrinsic pulmonary parenchymal masses, however assessment of the collapsed right lung is limited. Left lung and pleural space are clear. CHEST WALL: Normal chest wall structures. OSSEOUS STRUCTURES: No acute or suspicious osseous abnormality. CT ABDOMEN/PELVIS LIVER: The liver is normal in size, shape, and attenuation. No focal mass. Surgical clips present in the anterior aspect of the left hepatic lobe. GALLBLADDER AND BILIARY TREE: The gallbladder is normally distended. No gallstones. No gallbladder wall thickening or edema. No intra- or extrahepatic biliary ductal dilation. PANCREAS: No focal cystic or solid mass. SPLEEN: Normal size without focal cystic or solid mass. Scattered calcified granulomata. ADRENAL GLANDS: No nodules. KIDNEYS AND URETERS: Normal renal size and position, with symmetric enhancement bilaterally. No hydronephrosis or nephrolithiasis. PERITONEUM: No ascites or free air. No other fluid collection. BOWEL: The stomach is unremarkable. Normal caliber small bowel. No obstruction. No colonic wall thickening or inflammatory changes. No evidence of acute appendicitis. LYMPH NODES: No enlarged mesenteric or retroperitoneal lymph nodes. VESSELS: Aorta is non-dilated. Patent vascular structures. URINARY BLADDER: Unremarkable. REPRODUCTIVE ORGANS: Uterus and ovaries are normal. No pelvic masses. ABDOMINAL WALL: No discrete abdominal or pelvic wall hernia. OSSEOUS STRUCTURES: No acute or suspicious osseous abnormality. CT/Abdomen/Pelvis W IV Cont ONLY IMPRESSION: * No pulmonary embolism. * Extensive bulky pleural masses throughout the right hemithorax accompanied by large right pleural effusion. As far as I can tell, the masses are not entirely pleural, and there is no evidence of metastatic disease elsewhere within the chest, abdomen or pelvis. 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 * No acute findings in the abdomen or pelvis. * Postprocedural changes in the left hepatic lobe. Electronically Signed: Andrez Garcia MD at 2:45 EDT ,
[2023-10-08 01:00] VITALS: BP 125/75; PULSE 89; RESP 24; O2SAT 98
[2023-10-08 02:00] VITALS: BP 122/71; PULSE 83; RESP 26; O2SAT 91
[2023-10-08 03:36] VITALS: BP 129/85; PULSE 103; RESP 29; TEMP 36.7; O2SAT 92
== END 2023-10-08 03:39 | disposition home or self-care (01) ==
PROVIDERS: Emergency Provider Emergency Medicine; PCP Internal Medicine; Visit Provider Emergency Medicine
DX: R06.00 Dyspnea, unspecified (principal); J90 Pleural effusion, not elsewhere classified; Z90.49 Acquired absence of other specified parts of digestive tract
CPT/HCPCS: 71046; 71275; 74177; 81001; 85379; 87631; 96374; 96375; 99282; Q9967; A4216; J2405